=== PATIENT | female | born 1985 ===

== ENCOUNTER 2017-08-23 22:14 | Emergency (ER) | payer MEDICAID ==
[2017-08-23 22:20] VITALS: RESP 20; TEMP 97.4
--- NOTE | 2017-08-23 22:43 | C.PDOC ---
History Of Present Illness 31 yo female come in for evaluation of vaginal bleeding for 1 month. Pt reports , LNMP 07/24/17 " was bleeding since". Pt reports, " bleeding is heavy, change 4 -5 pads daily. Pt sts, was seen by her [facility] few days ago, who recommend transvaginal US. Otherwise, pt denies fever, chills, headache, dizziness, vertigo, neck pain, CP, SOB, dyspnea, diaphoresis, palpitation, abd. pain, V/D, back pain, UTI sx. Ambulate to ED for evaluation, not in any apparent distress. Time Seen by Provider: 08/23/17 22:30 Chief Complaint (Nursing): Female Genitourinary History Per: Patient Past Medical History Reviewed: Historical Data, Nursing Documentation, Vital Signs Vital Signs: Last Vital Signs Temp 97.4 F L 08/23/17 22:17 Pulse 78 08/24/17 00:08 Resp 20 08/24/17 00:08 BP 102/66 08/24/17 00:08 Pulse Ox 100 08/24/17 00:45 - Medical History PMH: No Chronic Diseases Surgical History: No Surg Hx Family History: States: No Known Family Hx - Social History Hx Tobacco Use: Yes Hx Alcohol Use: Yes Hx Substance Use: No - Immunization History Hx Tetanus Toxoid Vaccination: No Hx Influenza Vaccination: No Hx Pneumococcal Vaccination: No Review Of Systems Except As Marked, All Systems Reviewed And Found Negative. Constitutional: Negative for: Fever, Chills, Malaise ENT: Negative for: Throat Pain Cardiovascular: Negative for: Chest Pain Respiratory: Negative for: Cough, Shortness of Breath Gastrointestinal: Negative for: Nausea, Vomiting, Abdominal Pain, Diarrhea Genitourinary: Positive for: Vaginal Bleeding Musculoskeletal: Negative for: Neck Pain Neurological: Negative for: Weakness, Numbness, Altered Mental Status, Headache , Dizziness Physical Exam - Physical Exam Appears: Well, Non-toxic, No Acute Distress Skin: Normal Color, Warm, Dry, No Rash Eye(s): bilateral: PERRL Nose: No Flaring, No Discharge Oral Mucosa: Moist, No Drooling Throat: No Erythema, No Exudate, No Drooling Neck: Supple Cardiovascular: Rhythm Regular Respiratory: No Decreased Breath Sounds, No Accessory Muscle Use, No Stridor, No Wheezing Gastrointestinal/Abdominal: Soft, No Tenderness, No Distention, No Guarding Back: No CVA Tenderness Extremity: No Pedal Edema Neurological/Psych: Oriented x3, Normal Speech ED Course And Treatment - Laboratory Results Result Diagrams: 08/24/17 00:25 08/24/17 00:25 Lab Interpretation: No Acute Changes O2 Sat by Pulse Oximetry: 100 Pulse Ox Interpretation: Normal - CT Scan/US TRANSVAGINAL Other Rad Studies (CT/US): Radiology Report Reviewed CT/US Interpretation: CLINICAL HISTORY: 31 years old, female; Signs and symptoms; Other: Vag bleed; Additional info: Vaginal bleeidng. TECHNIQUE: Real -time transvaginal pelvic ultrasound (complete) with image documentation. Transvaginal. imaging was used for better evaluation of the endometrium and adnexa. COMPARISON: No relevant prior studies available. FINDINGS: Uterus/ cervix: Unremarkable in echogenicity and size measuring 8.3 x 3.5 x 4.6 cm. Normal. endometrial stripe thickness, measuring 6 mm. No myometrial mass. Intrauterine device is present,. in good position. Right ovary: Increased in size measuring 5.0 x 3.3 x 4.1 cm. An anechoic focus is identified. measuring 3.5 cm in greatest dimension, statistically a cyst. No solid mass. Normal blood flow. Left ovary: Unremarkable in echogenicity and size measuring 2.6 x 2.6 x 2.6 cm. No mass. Normal. blood flow. Free fluid: No free fluid. IMPRESSION: Simple cyst within the right ovary measuring 3.5 cm in greatest dimension. Intrauterine device, in good position. Thank you for allowing us to participate in the care of your patient. Dictated and Authenticated by: Mee Cazares MD. 08/23/2017 11:37 PM Eastern Time ([place] & [place] Progress Note: On re-evaluation, pt is afebrile, hemodynamicaly stable. non- toxic. Ambulatory in ED with stable gait. PulsEOx 100% RA. ENT: no acute findings. neck: Supple, (-) JVD, (-) carotid bruits B/L. Lungs: CTA B/L, BS equal B/L. CVS: (+)S1S2, reg. Abd: benign. back: (-) CVA tenderness. Neuorlogicaly intact. Blood work review and appears normal, no evidence of anemia. US results review and discussed with pt, no acute abnormalities noted. Pt advised and ref. to f/u with [facility] in 2-3 days for re-evaluation and further tx. return to ED if any worsening or new changes. Disposition Counseled Patient/Family Regarding: Studies Performed, Diagnosis, Need For Followup - Disposition [facility] Disposition: HOME/ ROUTINE Disposition Time: 23:44 Condition: STABLE Additional Instructions: Encourage fluids Follow up with [facility] in 2-3 days for re-evaluation. Return to ED if any worsening or new changes. Instructions: Dysfunctional Uterine Bleeding (ED) Forms: [employer] ([place]) - Clinical Impression Clinical Impression: Dysfunctional uterine bleeding
--- NOTE | 2017-08-23 23:37 | US ---
EXAM: US Pelvis, Transvaginal CLINICAL HISTORY: 31 years old, female; Signs and symptoms; Other: Vag bleed; Additional info: Vaginal bleeidng TECHNIQUE: Real-time transvaginal pelvic ultrasound (complete) with image documentation. Transvaginal imaging was used for better evaluation of the endometrium and adnexa. COMPARISON: No relevant prior studies available. FINDINGS: Uterus/cervix: Unremarkable in echogenicity and size measuring 8.3 x 3.5 x 4.6 cm. Normal endometrial stripe thickness, measuring 6 mm. No myometrial mass. Intrauterine device is present, in good position. Right ovary: Increased in size measuring 5.0 x 3.3 x 4.1 cm. An anechoic focus is identified measuring 3.5 cm in greatest dimension, statistically a cyst. No solid mass. Normal blood flow. Left ovary: Unremarkable in echogenicity and size measuring 2.6 x 2.6 x 2.6 cm. No mass. Normal blood flow. Free fluid: No free fluid. IMPRESSION: Simple cyst within the right ovary measuring 3.5 cm in greatest dimension. Intrauterine device, in good position.
[2017-08-24] MEDS ORDERED: Sodium Chloride 0.9% 1,000 ML IV ONE (00:07)
[2017-08-24 00:09] VITALS: BP 102/66; PULSE 78
[2017-08-24 00:28] LABS: RBC URINE 1630 /hpf (0-3); URINE BILIRUBIN NEGATIVE (NEGATIVE); URINE BLOOD 3+ (NEGATIVE); URINE COLOR Yellow (YELLOW); URINE GLUCOSE (UA) NORMAL (Normal); URINE KETONE NEGATIVE (NEGATIVE); URINE LEUKOCYTE ESTERASE NEG Leu/uL (Negative); URINE PROTEIN 1+ mg/dL (NEGATIVE); URINE UROBILINOGEN NORMAL mg/dL (0.2-1.0); WBC URINE 63 /hpf (0-5)
[2017-08-24 00:29] LABS: BASO # 0.1 K/uL (0.0-0.2); EOS # 0.3 K/uL (0.0-0.7); EOS % 2.8 % (0.0-4.0); HEMATOCRIT 37.2 % (34.0-47.0); LYMPH # 3.1 K/uL (1.0-4.3); LYMPH % 28.2 % (20.0-40.0); MEAN CELL VOLUME 89.8 fL (81.0-99.0); MEAN CORPUSCULAR HEMOGLOBIN 30.2 pg (27.0-31.0); MEAN CORPUSCULAR HGB CONC 33.7 g/dL (33.0-37.0); MEAN PLATELET VOLUME 9.2 fL (7.2-11.7); MONO # 0.7 K/uL (0.0-0.8); MONO % 6.3 % (0.0-10.0); RED CELL DISTRIBUTION WIDTH 13.5 % (11.5-14.5); WHITE BLOOD COUNT 10.9 K/uL (4.8-10.8)
[2017-08-24 00:37] LABS: INR 1.1
[2017-08-24 00:45] VITALS: O2SAT 100
[2017-08-24 00:59] LABS: CHLORIDE 100 mmol/L (98-107); POTASSIUM 3.9 mmol/L (3.6-5.2); SODIUM 133 mmol/L (132-148)
[2017-08-24 01:05] LABS: BLOOD UREA NITROGEN 9 mg/dL (7-17); CALCIUM 8.6 mg/dl (8.6-10.4); CARBON DIOXIDE 22 mmol/L (22-30); GFR AFRICAN-AMERICAN > 60; GLUCOSE,RANDOM 90 mg/dL (65-105)
== END 2017-08-24 00:55 | disposition home or self-care (01) ==
LOC: C.ER 22:14
DX: N93.8 Other specified abnormal uterine and vaginal bleeding (principal)
CPT/HCPCS: 76830; 76856; 80048; 81001; 85025; 85610; 85730; 96360; 99284; J7040